=== PATIENT | female | born 1995 | race Caucasian/White ===

== ENCOUNTER 2017-01-09 16:17 | Emergency (ER) | payer OTHER ==
[~2017-01-09] VITALS: Ht 162.6 cm; Wt 80.4 kg
--- NOTE | 2017-01-09 16:55 | PHYS DOC ---
Past Medical History Past Medical History: Depression, Other Additional Past Medical Histor: strep throat Additional Information: quit smoking 1 week ago, states prior to 1 week ago was smoking approximately 3 cigarettes daily. Alcohol Use: Occasionally Drug Use: Marijuana Adult General Chief Complaint Chief Complaint: ABDOMINAL PAIN HPI HPI Patient is a 21 year old female who presents ambulatory to the ED with the complaint of lower abdominal cramping pain for 3 days. She had diarrhea all week. She can't really say how many times, it usually occurred after eating. The last diarrhea she had was 2 days ago. She doesn't believe there was any blood in it. Then she started having lower abdominal crampy pain 3 days ago. Today she didn't have much appetite but she ate some [place] food and that made her pain a lot worse. She has not had diarrhea today. Patient has had some nausea, no vomiting. She says she is not nauseated at this time. Patient denies fever or chills. No one else at home is sick. She works in an office doing billing. She has not been around anyone sick. Patient denies , she has a Mirena. Review of Systems Review of Systems Constitutional: Denies fever or chills [] HENT: Denies nasal congestion or sore throat [] Respiratory: Denies cough or shortness of breath [] Cardiovascular: Denies chest pain GI: As in history of present illness : Denies dysuria or hematuria [] Musculoskeletal: Denies back pain or joint pain [] Integument: Denies rash or skin lesions [] Neurologic: Denies headache, focal weakness or sensory changes [] Current Medications Current Medications Current Medications Medications (Trade) Dose Ordered Sig/Penelope Start Time Stop Time Status Last Admin Dose Admin Dicyclomine HCl (Bentyl) 10 mg 1X ONCE 01/09/17 17:30 01/09/17 17:31 DC 01/09/17 17:21 10 MG Diphenoxylate HCl/ Atropine (Lomotil) 1 tab 1X ONCE 01/09/17 17:30 01/09/17 17:31 DC 01/09/17 17:21 1 TAB Fentanyl Citrate (Fentanyl 2ml Vial) 50 mcg PRN Q15MIN PRN 01/09/17 18:15 01/10/17 18:14 01/09/17 18:31 50 MCG Iohexol (Omnipaque 300 Mg/ml) 75 ml 1X ONCE 01/09/17 18:15 01/09/17 18:24 DC 01/09/17 18:22 75 ML Ketorolac Tromethamine (Toradol) 30 mg 1X ONCE 01/09/17 17:30 01/09/17 17:31 DC 01/09/17 17:21 30 MG Sodium Chloride 1,000 ml @ 1,000 mls/hr Q1H 01/09/17 17:00 01/09/17 17:59 DC 01/09/17 17:20 1,000 MLS/HR Allergies Allergies Allergies Coded Allergies Type Severity Reaction Last Updated Verified No Known Drug Allergies 01/09/17 No Physical Exam Physical Exam Constitutional: Appears to not feel well. Alert, mentating normally. Vital signs stable. HENT: Normocephalic, atraumatic, bilateral external ears normal, nose normal. [ ] Eyes: conjunctiva normal, no discharge. [] Neck: Normal range of motion, no stridor. [] Cardiovascular:Heart rate regular rhythm, no murmur [] Lungs & Thorax: Bilateral breath sounds clear to auscultation [] Abdomen: Bowel sounds normal, soft, nondistended, no masses, no pulsatile masses. Patient indicates the area of pain across her lower abdomen bilaterally. However, this area is entirely nontender to palpation. No rebound or guarding. Skin: Warm, dry, no erythema, no rash. [] Extremities: No tenderness, no cyanosis, no clubbing, ROM intact, no edema. [] Neurologic: Alert and oriented X 3, normal motor function, no focal deficits noted. [] Current Patient Data Vital Signs Vital Signs Date Time Temp Pulse Resp B/P (MAP) Pulse Ox O2 Delivery O2 Flow Rate FiO2 01/09/17 18:31 16 99 01/09/17 16:30 98.4 66 125/72 (89) Room Air 98.4 Lab Values Laboratory Tests Test 01/09/17 16:25 01/09/17 16:37 01/09/17 17:17 Urine Collection Type Void Urine Color Straw Urine Clarity Clear Urine pH 6.0 Urine Specific [place] 1.015 Urine Protein Negative mg/dL (NEG-TRACE) Urine Glucose (UA) Negative mg/dL (NEG) Urine Ketones (Stick) Negative mg/dL (NEG) Urine Blood Trace (NEG) Urine Nitrite Negative (NEG) Urine Bilirubin Negative (NEG) Urine Urobilinogen Dipstick 0.2 mg/dL (0.2 mg/dL) Urine Leukocyte Esterase Small (NEG) Urine RBC Rare /HPF (0-2) Urine WBC 11-20 /HPF (0-4) Urine Squamous Epithelial Cells Mod /LPF Urine Bacteria Few /HPF (0-FEW) Urine Mucus Mod /LPF POC Urine HCG, Qualitative Hcg negative (Negative) White Blood Count 18.6 x10^3/uL (4.0-11.0) H Red Blood Count 4.29 x10^6/uL (3.50-5.40) Hemoglobin 13.2 g/dL (12.0-15.5) Hematocrit 39.7 % (36.0-47.0) Mean Corpuscular Volume 93 fL (79-100) Mean Corpuscular Hemoglobin 31 pg (25-35) Mean Corpuscular Hemoglobin Concent 33 g/dL (31-37) Red Cell Distribution Width 13.3 % (11.5-14.5) Platelet Count 355 x10^3/uL (140-400) Neutrophils (%) (Auto) 88 % (31-73) H Lymphocytes (%) (Auto) 8 % (24-48) L Monocytes (%) (Auto) 4 % (0-9) Eosinophils (%) (Auto) 1 % (0-3) Basophils (%) (Auto) 0 % (0-3) Neutrophils # (Auto) 16.3 x10^3uL (1.8-7.7) H Lymphocytes # (Auto) 1.5 x10^3/uL (1.0-4.8) Monocytes # (Auto) 0.7 x10^3/uL (0.0-1.1) Eosinophils # (Auto) 0.1 x10^3/uL (0.0-0.7) Basophils # (Auto) 0.1 x10^3/uL (0.0-0.2) Segmented Neutrophils % 81 % (35-66) H Band Neutrophils % 3 % (0-9) Lymphocytes % 10 % (24-48) L Monocytes % 5 % (0-10) Eosinophils % 1 % (0-5) Toxic Granulation Slight Platelet Estimate Adequate (ADEQUATE) Sodium Level 137 mmol/L (136-145) Potassium Level 3.6 mmol/L (3.5-5.1) Chloride Level 100 mmol/L (98-107) Carbon Dioxide Level 28 mmol/L (21-32) Anion Gap 9 (6-14) Blood Urea Nitrogen 8 mg/dL (7-20) Creatinine 0.9 mg/dL (0.6-1.0) Estimated GFR (Cockcroft-Gault) 77.6 BUN/Creatinine Ratio 9 (6-20) Glucose Level 107 mg/dL (70-99) H Calcium Level 8.7 mg/dL (8.5-10.1) Total Bilirubin 0.2 mg/dL (0.2-1.0) Aspartate Amino Transferase (AST) 13 U/L (15-37) L Alanine Aminotransferase (ALT) 15 U/L (14-59) Alkaline Phosphatase 63 U/L (46-116) Total Protein 7.2 g/dL (6.4-8.2) Albumin 3.8 g/dL (3.4-5.0) Albumin/Globulin Ratio 1.1 (1.0-1.7) Lipase 66 U/L (73-393) L Laboratory Tests 01/09/17 17:17 Laboratory Tests 01/09/17 17:17 EKG EKG [] Radiology/Procedures Radiology/Procedures CT of the abdomen and pelvis with IV contrast interpreted by the radiologist. No acute findings.[] Course & Med Decision Making Course & Med Decision Making Pertinent Labs and Imaging studies reviewed. (See chart for details) 21-year-old healthy female presents with lower abdominal crampy pain after having a diarrheal illness all week but no diarrhea for 2 days. No vomiting. No vaginal bleeding. test is negative. Her abdominal exam is very benign. We will treat her with some IV fluids and IV and by mouth pain and diarrhea medications, check some labs. She is agreeable to this plan. ED nursing staff reports that after the patient was medicated with Toradol, Lomotil, and Bentyl, she really did not get any significant relief. Note her white count is significantly elevated. We will check a CT scan. I gave her some fentanyl Recheck of the patient. She is feeling a little better after her IV fluids and IV fentanyl as well as above medications. She has not had any vomiting or diarrhea in the ED. CT scan negative for acute findings. I discussed with the patient that she does have an elevated white count but I am not really finding any other serious etiology of her symptoms, I believe it is probably a prolonged viral gastroenteritis type syndrome. I believe she is stable for discharge. Return precautions were discussed. Small amounts of clear liquids frequently. See instructions for plan. [] Dragon Disclaimer Dragon Disclaimer This electronic medical record was generated, in whole or in part, using a voice recognition dictation system. Departure Departure Impression: Primary Impression: Abdominal pain Additional Impression: Viral syndrome Disposition: 01 HOME, SELF-CARE Condition: IMPROVED Patient Instructions: Abdominal Pain, [id number], Viral Gastroenteritis, Easy -to-Read Additional Instructions: As we discussed, I am not sure what is causing your abdominal pain and cramping , but I think it is probably a virus because we did not find any other serious cause. I think we can try giving you a couple days of pain medicine as needed, and have you limit to small amounts of clear liquids and bland foods, and if not better in 2-3 days, see your doctor. If worse, if new symptoms, return for reevaluation. Hydrocodone for pain, this is an opiate, do not take while driving or working. It will be sedating. Also opiates can be addicting and constipating, use sparingly only as needed. Scripts Hydrocodone/Apap 5-325 (NORCO 5-325 TABLET) 1 Each Tablet 1-2 TAB PO Q4-6HRS for abdominal pain, #10 TAB Prov: MAU ROSE MD 01/09/17 Problem Qualifiers MAU ROSE MD Jan 09, 2017 16:55
[2017-01-09] MEDS ORDERED: IV NORMAL SALINE 1000ML BAG 1,000 ML IV SCH (17:00)
[2017-01-09 17:08] LABS: BILIRUBIN,URINE NEGATIVE (NEG); GLUCOSE,URINE NEGATIVE (NEG); NITRITE,URINE NEGATIVE (NEG); PROTEIN,URINE NEGATIVE (NEG-TRACE); UROBILINOGEN,URINE 0.2 mg/dL (0.2 mg/dL)
[2017-01-09] MEDS ORDERED: DICYCLOMINE HCL 10 MG CAPSULE PO ONE (17:30)
[2017-01-09] MEDS ORDERED: KETOROLAC 30 MG/ML INJ. IV ONE (17:30)
[2017-01-09] MEDS ORDERED: DIPHENOXYLATE/ATROPINE TABLET. PO ONE (17:30)
[2017-01-09 17:32] LABS: BACTERIA,URINE FEW /HPF (0-FEW); RBC,URINE RARE /HPF (0-2); SQUAMOUS EPITHELIAL CELL,UR MOD /LPF
[2017-01-09 17:40] LABS: BASO # 0.1 x10^3/uL (0.0-0.2); BASO % 0 % (0-3); EOS % 1 % (0-3); HEMATOCRIT 39.7 % (36.0-47.0); HEMOGLOBIN 13.2 g/dL (12.0-15.5); LYMPH # 1.5 x10^3/uL (1.0-4.8); LYMPH % 8 % (24-48); MEAN CORPUSCULAR HEMOGLOBIN 31 pg (25-35); MEAN CORPUSCULAR HGB CONC 33 g/dL (31-37); MEAN CORPUSCULAR VOLUME 93 fL (79-100); MONO % 4 % (0-9); NEUT % 88 % (31-73); PLATELET COUNT 355 x10^3/uL (140-400); RED BLOOD COUNT 4.29 x10^6/uL (3.50-5.40); RED CELL DISTRIBUTION WIDTH 13.3 % (11.5-14.5); WHITE BLOOD COUNT 18.6 x10^3/uL (4.0-11.0)
[2017-01-09 17:57] LABS: CALCIUM 8.7 mg/dL (8.5-10.1); CREATININE 0.9 mg/dL (0.6-1.0); GFR 77.6; POTASSIUM 3.6 mmol/L (3.5-5.1)
[2017-01-09 18:01] LABS: ALBUMIN 3.8 g/dL (3.4-5.0); ALBUMIN/GLOBULIN RATIO 1.1 (1.0-1.7); TOTAL BILIRUBIN 0.2 mg/dL (0.2-1.0); TOTAL PROTEIN 7.2 g/dL (6.4-8.2)
[2017-01-09 18:06] LABS: % EOS 1 % (0-5)
[2017-01-09 18:07] LABS: PLT ESTIMATE ADEQUATE (ADEQUATE); TOXIC GRANULATION SLIGHT
[2017-01-09] MEDS ORDERED: IOHEXOL 300 MG/ML 100ML VIAL. IV ONE (18:15)
[2017-01-09] MEDS: fentaNYL PF VIAL 100 MCG/2 ML VIAL IV PRN ×2 (18:31→19:33)
--- NOTE | 2017-01-09 18:47 | RAD ---
EXAM: Abdomen and pelvis CT with intravenous contrast. HISTORY: Bilateral lower abdominal pain with nausea and diarrhea. TECHNIQUE: Computed tomographic images of the abdomen and pelvis were obtained following the administration of 75 cc of Omni 300 intravenous contrast. Multiplanar reformatting was performed. PQRS compliance statement: One or more of the following individualized dose reduction techniques were utilized for this examination: 1. Automated exposure control 2. Adjustment of the mA and/or kV according to patient size 3. Use of iterative reconstruction technique COMPARISON: None. FINDINGS: The lung bases demonstrate no acute finding. The liver, spleen, gallbladder, pancreas, adrenal glands and bilateral kidneys demonstrate no focal abnormality. No nephrolithiasis or hydronephrosis is seen. The GI tract demonstrates no dilated bowel loops to suggest obstruction. Appendix is normal in caliber in the right lower quadrant. The urinary bladder is grossly unremarkable. An IUD is present centrally within the uterus, which is otherwise unremarkable. Bilateral adnexa demonstrate no focal abnormality in this premenopausal patient. Trace fluid is present in the cul-de-sac, likely physiologic. Otherwise, no intra-abdominal or pelvic free fluid, free air or significant lymphadenopathy is seen. Aorta is normal in caliber. Overlying soft tissues and visualized osseous structures demonstrate no acute or suspicious finding. IMPRESSION: No acute intra-abdominal or pelvic process seen. Electronically signed by: Shira Rangel MD (01/09/2017 6:44 PM) [facility]
[2017-01-09] MEDS ORDERED: HYDR-971 PO (19:21)
[2017-01-09 19:30] VITALS: BP 109/58
== END 2017-01-09 20:00 | disposition home or self-care (01) ==
LOC: ER 16:17
DX: R10.31 Right lower quadrant pain (principal); R10.32 Left lower quadrant pain; B34.9 Viral infection, unspecified; R19.7 Diarrhea, unspecified; F32.9 Major depressive disorder, single episode, unspecified; F12.10 Cannabis abuse, uncomplicated; Z87.891 Personal history of nicotine dependence
CPT/HCPCS: 36415; 74177; 80053; 81001; 81025; 83690; 85007; 85025; 87086; 96361; 96374; 96375; 96376; 99285; J1885; J3010; J7030; Q9967